=== PATIENT | female | born 1980 | race Two or more races ===

== ENCOUNTER 2018-01-23 20:01 | Emergency (ER) | payer OTHER, MEDICAID ==
[~2018-01-23] VITALS: Ht 157.5 cm; Wt 86.2 kg
[~2018-01-23 20:01] MED LIST: AMOXICILLIN500 MG ORAL; DOXYCYCLINE MO100 MG ORAL; NKM; RANITIDINE HCL150 MG ORAL
[2018-01-23 20:41] VITALS: BP 141/98
[2018-01-23 20:42] VITALS: BP 141/98
[2018-01-23 20:57] LABS: BASOPHILS % (AUTO) 1.4 % (0.0-2.0); EOSINOPHILS % (AUTO) 2.3 % (0.0-3.0); HEMATOCRIT 37.4 % (37.0-47.0); HEMOGLOBIN 12.8 G/DL (12.0-16.0); LYMPHOCYTES % (AUTO) 13.2 % (20.0-45.0); MEAN CORPUSCULAR VOLUME 85 FL (80-99); MONOCYTES % (AUTO) 6.5 % (1.0-10.0); NEUTROPHILS % (AUTO) 76.6 % (45.0-75.0); PLATELET COUNT 258 K/UL (150-450); RED BLOOD COUNT 4.38 M/UL (4.20-5.40); RED CELL DISTRIBUTION WIDTH 14.4 % (11.6-14.8); WHITE BLOOD COUNT 7.9 K/UL (4.8-10.8)
[2018-01-23] MEDS ORDERED: Aspirin Baby 81mg ORAL ONE (21:00)
[2018-01-23 21:14] LABS: ANION GAP 12 mmol/L (5-15); BLOOD UREA NITROGEN 11 mg/dL (7-18); CARBON DIOXIDE 26 MMOL/L (21-32); CHLORIDE 100 MMOL/L (98-107); CREATININE 0.7 MG/DL (0.55-1.30); POTASSIUM 3.1 MMOL/L (3.5-5.1); SODIUM 138 MMOL/L (136-145)
[2018-01-23 21:28] LABS: ALANINE AMINOTRANSFERASE 44 U/L (12-78); ALBUMIN/GLOBULIN RATIO 1.1 (1.0-2.7); ALKALINE PHOSPHATASE 73 U/L (46-116); ASPARTATE AMINO TRANSFERASE 31 U/L (15-37); BILIRUBIN,TOTAL 0.3 MG/DL (0.2-1.0); CKMB 1.8 NG/ML (0.0-3.6); CREATINE KINASE 274 U/L (26-308)
[2018-01-23 21:36] LABS: APPEARANCE,URINE CLEAR; BILIRUBIN, URINE NEGATIVE (NEGATIVE); COLOR,URINE PALE YELLOW; GLUCOSE, URINE (UA) NEGATIVE (NEGATIVE); KETONES,URINE 3+ (NEGATIVE); LEUKOCYTE ESTERASE ,URINE NEGATIVE (NEGATIVE); NITRITE,URINE NEGATIVE (NEGATIVE); PH,URINE 8 (4.5-8.0); PROTEIN,URINE NEGATIVE (NEGATIVE); UROBILINOGEN,URINE NORMAL MG/DL (0.0-1.0)
[2018-01-23] MEDS ORDERED: Isovue-370 150ml vial INJ PRN (22:00)
--- NOTE | 2018-01-23 22:31 | Emergency Room Report ---
History of Present Illness General Chief Complaint: Chest Pain Source: Patient Present Illness HPI Is a 37-year-old female with no past medical history. She presents with chief complaint of mid back pain has been on and off for 2 weeks. Usually at night. Burning sensation. She came in today because she also has some neck and arm pain and numbness and tingliness. This usually is on the left side. Denies any other complaint. No diaphoresis. No chest pain. No exertional component. [place] short of breath. No palpitation. Does have strong family history of cardiac events. Allergies: Coded Allergies: No Known Allergies (Unverified , 09/19/15) Patient History Past Medical History: see triage record, old chart reviewed Past Surgical History: none Pertinent Family History: none Social History: Denies: smoking Last Menstrual Period: 01/12 Now: No Immunizations: other Reviewed Nursing Documentation: PMH: Agreed; PSxH: Agreed Nursing Documentation-PMH Past Medical History: No Stated History Review of Systems Eye: Denies: eye pain, blurred vision ENT: Denies: ear pain, nose congestion, throat swelling Respiratory: Reports: shortness of breath; Denies: cough Cardiovascular: Denies: chest pain, palpitations Gastrointestinal: Denies: abdominal pain, diarrhea, nausea, vomiting Musculoskeletal: Reports: back pain; Denies: joint pain Skin: Denies: rash Neurological: Denies: headache, numbness Endocrine: Denies: increased thirst, increased urine Hematologic/Lymphatic: Denies: easy bruising All Other Systems: negative except mentioned in HPI Physical Exam Vital Signs Date Time Temp Pulse Resp B/P (MAP) Pulse Ox O2 Delivery O2 Flow Rate FiO2 01/23/18 20:06 98.2 87 20 175/101 97 Room Air by dose with high blood pressure. Repeat blood pressure 130/80 Sp02 EP Interpretation: reviewed, normal General Appearance: well appearing, no apparent distress, alert Head: normocephalic, atraumatic Eyes: bilateral eye PERRL, bilateral eye EOMI ENT: hearing grossly normal, normal pharynx Neck: full range of motion, supple, no meningismus Respiratory: chest non-tender, lungs clear, normal breath sounds, other - hyperventilating Cardiovascular #1: regular rate, rhythm, no murmur, other - She has a rash underneath both breasts. Erythematous. No abscess. Gastrointestinal: normal bowel sounds, non tender, no mass, no organomegaly, no bruit, non-distended Musculoskeletal: back normal, gait/station normal, normal range of motion Psychiatric: mood/affect normal Skin: warm/dry Medical Decision Making Diagnostic Impression: Primary Impression: Back pain Qualified Codes: M54.6 - Pain in thoracic spine Additional Impressions: Dyspnea Qualified Codes: R06.00 - Dyspnea, unspecified [facility] ER Course Patient presents with dyspnea and back pain. No evidence of ACS, PE, dissection to name a few. We'll discharge home. EKG Diagnostic Results Rate: normal Rhythm: NSR ST Segments: no acute changes ASA given to the pt in ED: Yes Rhythm Strip Diag. Results Rhythm Strip Time: 22:31 EP Interpretation: yes Rate: 73 Rhythm: NSR, no PVC's, no ectopy Chest X-Ray Diagnostic Results Chest X-Ray Diagnostic Results : Chest X-Ray Ordered: Yes # of Views/Limited/Complete: 1 View Indication: Shortness of Breath EP Interpretation: Yes Interpretation: no consolidation, no effusion, no pneumothorax, no acute cardiopulmonary disease Impression: No acute disease Electronically Signed by: Maximus Bergeron MD CT/MRI/US Diagnostic Results CT/MRI/US Diagnostic Results : Imaging Test Ordered: CT chest Impression negative per radiologist Last Vital Signs Date Time Temp Pulse Resp B/P (MAP) Pulse Ox O2 Delivery O2 Flow Rate FiO2 01/23/18 20:47 91 18 Room Air 01/23/18 20:41 98.2 141/98 97 Status: improved Disposition: HOME, SELF-CARE Condition: Stable Scripts Ketoconazole (XOLEGEL) 45 Gm Gel..gram. 1 APPLIC TOPIC BID, #45 GM 0 Refills Prov: Maximus Bergeron MD 01/23/18 Ibuprofen* (MOTRIN*) 600 Mg Tablet 600 MG ORAL THREE TIMES A DAY, #30 TAB 0 Refills Prov: Maximus Bergeron MD 01/23/18 Referrals: Rex Leiva MD (PCP) Patient Instructions: Nonspecific Chest Pain Additional Instructions: Follow-up with your doctor in 7 days. Return if symptom worsen. Maximus Bergeron MD Jan 23, 2018 22:31
[2018-01-23 22:41] VITALS: BP 142/90
[2018-01-23 23:21] VITALS: BP 133/87
[2018-01-23] MEDS ORDERED: IBUPROFEN600 MG ORAL (23:21)
[2018-01-23] MEDS ORDERED: XOLEGEL45 GM TOPIC (23:21)
[2018-01-24 00:38] VITALS: BP 133/87
--- NOTE | 2018-01-24 09:25 | Diagnostic Imaging Report ---
Indication: Dyspnea Technique: Continuous helical transaxial imaging of the chest was obtained from the thoracic inlet to the upper abdomen during rapid intravenous contrast administration. Arterial phase of enhancement obtained. Coronal 2-D reformats were also obtained and maximum intensity projection images in multiple planes. Study obtained in a Siemens sensation [address] Automatic Exposure Control was utilized. Total Dose length Product (DLP): 978.[address] Dose Index Volume (CTDIvol): 28.38 mGy Comparison: None Findings: The pulmonary artery is well opacified and shows no filling defects. There is no adenopathy, pleural or pericardial effusions are identified. There is no aortic dissection or aneurysm identified within the chest. The lungs are clear. Suggestion of a prominent cysts within the left lobe of the liver noted near the falciform ligament. Remainder of the visualized upper abdomen appears unremarkable. Impression: No evidence of pulmonary embolus or other acute findings. Suggestion of hepatic cysts [facility] has communicated the preliminary results to the Emergency Department. Their findings are largely concordant with this report. The CT scanner at [facility] is accredited by the [employer] and the scans are performed using dose optimization techniques as appropriate to a performed exam including Automatic Exposure control.
--- NOTE | 2018-01-24 11:44 | Diagnostic Imaging Report ---
Indication: Dyspnea Comparison: 01/15/2016 A single view chest radiograph was obtained. Findings: Cardiomediastinal appearance is within normal limits for age. The lungs are clear. Pulmonary vascularity is appropriate. The diaphragmatic contour is smooth and costophrenic angles are sharp. No pleural effusions are identified. The bones are unremarkable. Impression: No acute findings
--- NOTE | 2018-01-24 14:59 | Cardiology Report ---
APPROVED REPORT EKG Measurement Heart [id number] Normal sinus rhythm Normal ECG
== END 2018-01-23 23:31 | disposition home or self-care (01) ==
LOC: EMR 20:31
DX: M54.6 Pain in thoracic spine (principal); R06.00 Dyspnea, unspecified
CPT/HCPCS: 36415; 71045; 71275; 80053; 81003; 81025; 82550; 82553; 83880; 84484; 85025; 85379; 93005; 96360; 99284; Q9967